=== PATIENT | female | born 1950 | race Caucasian/White ===

== ENCOUNTER 2017-06-20 06:29 | Observation (INO) ==
[2017-06-20] MEDS ORDERED: Oxymetazoline Nasal SPRAY BOTTLE NS STA (06:31)
--- NOTE | 2017-06-20 06:46 | Emergency Department Note ---
START Narrative - START START: I examined this patient and my medical decision-making was reviewed with the Resident Physician. I agree with the documented findings, disposition and treatment plan as described except to the extent set forth below. Findings consistent with epistaxis. Patient has anterior packing in place. There is bleeding around the anterior packing. The patient is not an anticoagulation. I did remove the anterior packing placed in anterior posterior back with Uzair- Synephrine. Plan to admit for ENT consult, will observe in the ER and if bleeding persists we will replace packing with Merocel packing. Could consider placing TX A on packing material.
--- NOTE | 2017-06-20 06:47 | Emergency Department Note ---
Disposition Clinical Impression: Epistaxis Disposition: Still a Patient Condition: Good Epistaxis HPI - General Chief complaint: ED Epistaxis Stated complaint: epistaxis Time Seen by Provider: 06/20/17 06:30 Source: EMS Limitations: no limitations Nursing Notes Reviewed: Yes Vital Signs Reviewed: Yes - History of Present Illness HPI Narrative: Patient presents for evaluation of epistaxis. Epistaxis started 5 days ago. Patient dealt with at home. Patient was seen at [facility] twice. Nasal packing placed yesterday. Patient was placed on antibiotics. Patient continues to have bleeding around the site. Patient does not take any anticoagulation. Patient has not had any previous similar episodes. Patient does not describe any other symptoms. Rhino Rocket will be removed. The posterior Rhino Rocket placed. The patient will be observed to ensure bleeding control. - Related Data Home Medications Medication Instructions Recorded Confirmed Aspirin 81 mg PO DAILY 02/24/15 06/19/17 [place]-3S/Dha/Epa/Fish Oil [Fish 1 tab PO QAM 02/24/15 06/19/17 Oil 1,200 mg Softgel] OxyCODONE/APAP 5/325 [Percocet 1 each PO Q6HR 02/24/15 06/19/17 5/325 MG] Pravastatin Sodium [Pravachol] 20 mg PO HS 05/13/16 06/19/17 Albuterol Sulfate [Ventolin Hfa] 2 puff IH Q4H PRN 05/23/16 06/19/17 Tiotropium [Spiriva] 18 mcg IH DAILY 05/23/16 06/19/17 Fluticasone/Salmeterol [Advair 1 each IH DAILY 06/17/17 06/19/17 250-50 Diskus] Lisinopril [Zestril] 10 mg PO DAILY 06/17/17 06/19/17 Metoprolol [Lopressor] 25 mg PO DAILY 06/17/17 06/19/17 Previous Rx's Medication Instructions Recorded Furosemide [Lasix] 20 mg PO DAILY #30 tablet 05/25/16 Tramadol HCl [Ultram] 50 mg PO QID PRN #10 tab 06/19/17 cephALEXin [Keflex] 500 mg PO QID #40 capsule 06/19/17 Allergies Allergy/AdvReac Type Severity Reaction Status Date / Time No Known Allergies Allergy Verified 06/20/17 06:30 Review of Systems: CONSTITUTIONAL: No weight loss, fever, chills, weakness or fatigue. HEENT: Eyes: No visual changes. Ears, Nose, Throat: Epistaxis No hearing loss, difficulty talking or unable to swallow. SKIN: No rash or itching. CARDIOVASCULAR: No chest pain, chest pressure or chest discomfort. No palpitations or edema. RESPIRATORY: No shortness of breath, cough or sputum. GASTROINTESTINAL: No anorexia, nausea, vomiting or diarrhea. No abdominal pain or blood. GENITOURINARY: No burning on urination or hematuria. NEUROLOGICAL: No headache, dizziness, syncope, paralysis, ataxia, numbness or tingling in the extremities. No change in bowel or bladder control. MUSCULOSKELETAL: No muscle pain, back pain, joint pain or stiffness. 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 Mild bleeding around Rhino Rocket. Patient has bleeding to the posterior oropharynx. Neck: Normal appearance; Trachea midline Chest: Symmetrical chest rise; No respiratory distress Extremities: No peripheral edema or extremity tenderness Skin: Normal temperature, turgor and texture; no rash, ulcers or subcutaneous nodules Psych: Appropriate mood and affect Neuro: Awake and alert - General Limitations: no limitations General appearance: alert, in no apparent distress Course Course Narrative: Rapid Rhino Rocket removed -Anterior. Uzair-Synephrine applied. -Posterior Rhino Rocket placed. Patient will be signed out to the oncoming day team. Dr. Stone and Dr. Patel. Patient will need to be monitored for other signs of bleeding. If any further signs of bleeding the patient's bleeding will need to be addressed. Vital Signs Temperature 98.0 F 06/20/17 06:32 Pulse Rate 110 06/20/17 06:32 Respiratory Rate 20 06/20/17 06:32 Blood Pressure 149/94 06/20/17 06:32 O2 Sat by Pulse Oximetry 93 01/13/18 06:32 Temperature 98.0 F 06/20/17 06:32 Pulse Rate 110 06/20/17 06:32 Respiratory Rate 20 06/20/17 06:32 Blood Pressure 149/94 06/20/17 06:32 O2 Sat by Pulse Oximetry 93 06/20/17 06:32 Oxygen Delivery Oxygen Delivery Room Air
[2017-06-20 08:42] LABS: Basophils # 0.1 K/mcL (0.0-0.2); Basophils % 0.5 %; Eosinophils # 0.1 K/mcL (0.0-0.6); Eosinophils % 0.5 %; Hematocrit 43.4 % (35.3-44.9); Hemoglobin 14.3 g/dL (11.5-15.4); Immature Granulocytes % 0.3 % (0-4); Lymphocytes # 2.3 K/mcL (0.6-4.6); Lymphocytes % 13.1 %; Mean Corpuscular HGB Conc 32.9 g/dL (31.6-35.5); Mean Corpuscular Hemoglobin 30.3 pg (28.0-33.3); Mean Corpuscular Volume 91.9 fL (83.0-100.0); Mean Platelet Volume 9.8 fL (9.4-12.4); Monocytes # 1.2 K/mcL (0.0-1.3); Monocytes % 6.8 %; Neutrophils # 13.9 K/mcL (1.6-8.9); Platelet Count 259 K/mcL (140-400); Red Blood Count 4.72 M/mcL (3.82-4.97); Segmented Neutrophils % 78.8 %
[2017-06-20 08:53] LABS: INR 1.1; Prothrombin Time 11.7 Seconds (9.4-12.1)
[2017-06-20 08:56] LABS: Activated Partial Thrombo Time 27.7 Seconds (26.0-36.0)
[2017-06-20 08:57] LABS: BUN/Creatinine Ratio 32 (6-26); Blood Urea Nitrogen 25 mg/dL (8-23); Calcium 8.8 mg/dL (8.6-10.3); Carbon Dioxide 27 mEq/L (23-29); Chloride 105 mEq/L (98-107); Glucose 125 mg/dL (70-105); Osmolality,Calculated 290 (280-300); Potassium 4.4 mEq/L (3.5-5.1); Sodium 137 mEq/L (136-145); eGFR For African Americans > 60 (> 60); eGFR For Non-African Americans > 60 (> 60)
--- NOTE | 2017-06-20 09:52 | Emergency Department Note ---
Disposition Clinical Impression: Epistaxis Disposition: Admitted As Inpatient Condition: Good Referrals: Huy Leung MD [Primary Care Provider] - Forms: ED Satisfaction Letter General Adult HPI - General Chief complaint: ED Epistaxis Stated complaint: epistaxis Time Seen by Provider: 06/20/17 06:30 Source: EMS Limitations: no limitations - History of Present Illness Pain Scale: 0 - Related Data Home Medications Medication Instructions Recorded Confirmed Aspirin 81 mg PO DAILY 02/24/15 06/19/17 [place]-3S/Dha/Epa/Fish Oil [Fish 1 tab PO QAM 02/24/15 06/19/17 Oil 1,200 mg Softgel] OxyCODONE/APAP 5/325 [Percocet 1 each PO Q6HR 02/24/15 06/19/17 5/325 MG] Pravastatin Sodium [Pravachol] 20 mg PO HS 05/13/16 06/19/17 Albuterol Sulfate [Ventolin Hfa] 2 puff IH Q4H PRN 05/23/16 06/19/17 Tiotropium [Spiriva] 18 mcg IH DAILY 05/23/16 06/19/17 Fluticasone/Salmeterol [Advair 1 each IH DAILY 06/17/17 06/19/17 250-50 Diskus] Lisinopril [Zestril] 10 mg PO DAILY 06/17/17 06/19/17 Metoprolol [Lopressor] 25 mg PO DAILY 06/17/17 06/19/17 Previous Rx's Medication Instructions Recorded Furosemide [Lasix] 20 mg PO DAILY #30 tablet 05/25/16 Tramadol HCl [Ultram] 50 mg PO QID PRN #10 tab 06/19/17 cephALEXin [Keflex] 500 mg PO QID #40 capsule 06/19/17 Allergies Allergy/AdvReac Type Severity Reaction Status Date / Time No Known Allergies Allergy Verified 06/20/17 06:30 Past Medical History - Past Medical History Medical history: Reports: COPD, hyperlipidemia, hypertension, other Surgical history: Reports: appendectomy, hysterectomy Psychiatric history: Reports: no psych history 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 She agreed to see the patient. No plan for any new intervention. Will admit to observation as she has had 3 packs in the last 5 days. Hgb is stable. Vital Signs Temperature 98.0 F 06/20/17 06:32 Pulse Rate 110 06/20/17 06:32 Respiratory Rate 20 06/20/17 06:32 Blood Pressure 149/94 06/20/17 06:32 O2 Sat by Pulse Oximetry 93 06/20/17 06:32 Temperature 98.0 F 06/20/17 06:32 Pulse Rate 98 06/20/17 08:37 Respiratory Rate 20 06/20/17 06:32 Blood Pressure 110/77 06/20/17 08:37 O2 Sat by Pulse Oximetry 91 06/20/17 08:37 Oxygen Delivery Oxygen Delivery Room Air Medical Decision Making - Medical Records Medical records reviewed: Yes I reviewed the patient's medical records. - Lab Data Lab results reviewed: Yes I reviewed the patient's lab results. Result diagrams: 06/20/17 08:31 06/20/17 08:31 Lab Results 06/20/17 06/20/17 06/20/17 Range/Units 08:31 08:31 08:31 WBC 17.6 H (4.3-11.1) K/mcL RBC 4.72 (3.82-4.97) M/mcL Hgb 14.3 (11.5-15.4) g/dL Hct 43.4 (35.3-44.9) % MCV 91.9 (83.0-100.0) fL MCH 30.3 (28.0-33.3) pg MCHC 32.9 (31.6-35.5) g/dL RDW 15.0 H (11.5-14.5) % Plt Count 259 (140-400) K/mcL MPV 9.8 (9.4-12.4) fL Immature Gran % 0.3 (0-4) % Seg Neutrophils % 78.8 % Lymphocytes % 13.1 % Monocytes % 6.8 % Eosinophils % 0.5 % Basophils % 0.5 % Neutrophils # 13.9 H (1.6-8.9) K/mcL Lymphocytes # 2.3 (0.6-4.6) K/mcL Monocytes # 1.2 (0.0-1.3) K/mcL Eosinophils # 0.1 (0.0-0.6) K/mcL Basophils # 0.1 (0.0-0.2) K/mcL PT 11.7 (9.4-12.1) Seconds INR 1.1 APTT 27.7 (26.0-36.0) Seconds Sodium 137 (136-145) mEq/L Potassium 4.4 (3.5-5.1) mEq/L Chloride 105 (98-107) mEq/L Carbon Dioxide 27 (23-29) mEq/L BUN 25 H (8-23) mg/dL Creatinine 0.77 (0.60-1.20) mg/dL Est GFR ( Amer) > 60 (> 60) Est GFR (Non-Af Amer) > 60 (> 60) BUN/Creatinine Ratio 32 H (6-26) Glucose 125 H (70-105) mg/dL Calculated Osmolality 290 (280-300) Calcium 8.8 (8.6-10.3) mg/dL Blood Type 06/20/17 Range/Units 08:31 WBC (4.3-11.1) K/mcL RBC (3.82-4.97) M/mcL Hgb (11.5-15.4) g/dL Hct (35.3-44.9) % MCV (83.0-100.0) fL MCH (28.0-33.3) pg MCHC (31.6-35.5) g/dL RDW (11.5-14.5) % Plt Count (140-400) K/mcL MPV (9.4-12.4) fL Immature Gran % (0-4) % Seg Neutrophils % % Lymphocytes % % Monocytes % % Eosinophils % % Basophils % % Neutrophils # (1.6-8.9) K/mcL Lymphocytes # (0.6-4.6) K/mcL Monocytes # (0.0-1.3) K/mcL Eosinophils # (0.0-0.6) K/mcL Basophils # (0.0-0.2) K/mcL PT (9.4-12.1) Seconds INR APTT (26.0-36.0) Seconds Sodium (136-145) mEq/L Potassium (3.5-5.1) mEq/L Chloride (98-107) mEq/L Carbon Dioxide (23-29) mEq/L BUN (8-23) mg/dL Creatinine (0.60-1.20) mg/dL Est GFR ( Amer) (> 60) Est GFR (Non-Af Amer) (> 60) BUN/Creatinine Ratio (6-26) Glucose (70-105) mg/dL Calculated Osmolality (280-300) Calcium (8.6-10.3) mg/dL Blood Type O NEGATIVE Attestation Statement - Attestation Attestation: I examined this patient and my medical decision-making was reviewed with the Resident Physician. I agree with the documented findings, disposition and treatment plan as described except to the extent set forth below. Signed out by technical systems architect pending re-eval after nasal packing. No further bleeding .Discussed with ENT. Will admit for OBS as she has now had 3 ED visits.
--- NOTE | 2017-06-20 10:02 | ENT - Consult Note ---
Date of Encounter: 06/20/17 Time of Encounter: 10:00 Assessment and Plan (1) Epistaxis, recurrent Current Visit: Yes Status: Acute From the ENT standpoint the patient is stable for D/C home though I understand from the ED she is concerned about driving conditions and has elected to stay for observation. She already has an appt with our office for Thursday but we will call the patient to move that to Thursday or Thursday as I would like the current pack to remain in place for at least 3 days. Please prescribe oral antibiotics for prophylaxis. I will be happy to check her again should she rebleed while she is in the hospital. History of Present Illness Consult date: 06/20/17 Reason for ENT Consult: epistaxis History of present illness: 66 yo female with history of left sided epistaxis this week. Per the patient she was packed twice at an outside facility and then rebleed. She was advised to come to the [facility] ED this morning and was repacked with a longer device. She has now been in the ED for > 3 hours without bleeding. Her Hgb/ HcT is wnl. She reports stopping daily Aspirin 81 mg this week. Past Med Surg Social Fam HX - Past Medical History Medical history: COPD, hyperlipidemia, hypertension, other Psychiatric history: no psych history - Past Surgical History Surgical History: appendectomy, hysterectomy - Social History Smoking Status: Former smoker Smokeless Tobacco Status: No Alcohol use: none Drug use: none - Family History Mother Hx Family Cardiac Disorders: No Hx Family Respiratory Disorders: No Hx Family Cancer: Yes ("female cancer") Hx Family GI Disorders: No Hx Family Endocrine Disorder: No Hx Family Neuromuscular Disorders: No Hx Family Neurologic Disorders: No Hx Family HEENT Disorders: No Hx Family Autoimmune Disorders: No Medications and Allergies Aspirin 81 mg PO DAILY 02/24/15 [History] [place]-3S/Dha/Epa/Fish Oil [Fish Oil 1,200 mg Softgel] 1 tab PO QAM 02/24/15 [ History] OxyCODONE/APAP 5/325 [Percocet 5/325 MG] 1 each PO Q6HR 02/24/15 [History] Pravastatin Sodium [Pravachol] 20 mg PO HS 05/13/16 [History] Albuterol Sulfate [Ventolin Hfa] 2 puff IH Q4H PRN 05/23/16 [History] Tiotropium [Spiriva] 18 mcg IH DAILY 05/23/16 [History] Furosemide [Lasix] 20 mg PO DAILY #30 tablet 05/25/16 [Rx] Fluticasone/Salmeterol [Advair 250-50 Diskus] 1 each IH DAILY 06/17/17 [History] Lisinopril [Zestril] 10 mg PO DAILY 06/17/17 [History] Metoprolol [Lopressor] 25 mg PO DAILY 06/17/17 [History] Tramadol HCl [Ultram] 50 mg PO QID PRN #10 tab 06/19/17 [Rx] cephALEXin [Keflex] 500 mg PO QID #40 capsule 06/19/17 [Rx] 3 Allergy/AdvReac Type Severity Reaction Status Date / Time No Known Allergies Allergy Verified 06/20/17 06:30 ENT Exam Initial Vital Signs Temp Pulse Resp BP Pulse Ox 98.0 F 110 20 149/94 93 06/20/17 06:32 06/20/17 06:32 06/20/17 06:32 06/20/17 06:32 06/20/17 06:32 - ENT Other (Pack in Left nares with no active bleed, oropharynx is dry without fresh or old blood.) Exam Initial Vital Signs Temp Pulse Resp BP Pulse Ox 98.0 F 110 20 149/94 93 06/20/17 06:32 06/20/17 06:32 06/20/17 06:32 06/20/17 06:32 06/20/17 06:32 Results - Labs 06/20/17 08:31 06/20/17 08:31 Abnormal lab results WBC 17.6 K/mcL (4.3-11.1) H 06/20/17 08:31 RDW 15.0 % (11.5-14.5) H 06/20/17 08:31 Neutrophils # 13.9 K/mcL (1.6-8.9) H 06/20/17 08:31 BUN 25 mg/dL (8-23) H 06/20/17 08:31 BUN/Creatinine Ratio 32 (6-26) H 06/20/17 08:31 Glucose 125 mg/dL (70-105) H 06/20/17 08:31 Diabetes panel 06/20/17 Range/Units 08:31 Sodium 137 (136-145) mEq/L Potassium 4.4 (3.5-5.1) mEq/L Chloride 105 (98-107) mEq/L Carbon Dioxide 27 (23-29) mEq/L BUN 25 H (8-23) mg/dL Creatinine 0.77 (0.60-1.20) mg/dL Glucose 125 H (70-105) mg/dL Calcium 8.8 (8.6-10.3) mg/dL Calcium panel 06/20/17 Range/Units 08:31 Calcium 8.8 (8.6-10.3) mg/dL Pituitary panel 06/20/17 Range/Units 08:31 Sodium 137 (136-145) mEq/L Potassium 4.4 (3.5-5.1) mEq/L Chloride 105 (98-107) mEq/L Carbon Dioxide 27 (23-29) mEq/L BUN 25 H (8-23) mg/dL Creatinine 0.77 (0.60-1.20) mg/dL Glucose 125 H (70-105) mg/dL Calcium 8.8 (8.6-10.3) mg/dL Adrenal panel 06/20/17 Range/Units 08:31 Sodium 137 (136-145) mEq/L Potassium 4.4 (3.5-5.1) mEq/L Chloride 105 (98-107) mEq/L Carbon Dioxide 27 (23-29) mEq/L BUN 25 H (8-23) mg/dL Creatinine 0.77 (0.60-1.20) mg/dL Glucose 125 H (70-105) mg/dL Calcium 8.8 (8.6-10.3) mg/dL All other labs normal. Consult Discharge Plan - Plan Referrals: Huy Leung MD [Primary Care Provider] -
[2017-06-20] MEDS ORDERED: Naloxone 0.4 MG/ML INJ IVP PRN ×2 (10:50→10:53)
[2017-06-20] MEDS ORDERED: Acetaminophen 325 MG TABLET PO PRN (10:53)
--- NOTE | 2017-06-20 11:03 | Internal Med History&Physical ---
Date of Encounter: 06/20/17 Time of Encounter: :18 Assessment and Plan (1) Epistaxis, recurrent Current visit: Yes Status: Acute ENT evaluated the patient in the ER, plan of care explained and their note Posterior Rhino Rocket packing to be left intact for 3 days Follow-up with ENT on Thursday or Thursday Pain control Hold aspirin (2) Hypertension Current visit: Yes Status: Chronic Monitor blood pressure Continue home medication regime Qualifiers: Hypertension type: essential hypertension Qualified Code(s): I10 - Essential (primary) hypertension (3) Hyperlipidemia Current visit: Yes Status: Chronic Continue home medication Qualifiers: Hyperlipidemia type: unspecified Qualified Code(s): E78.5 - Hyperlipidemia , unspecified (4) Tobacco use Current visit: Yes Status: Acute Cessation education NicoDerm patch (5) DVT prophylaxis Current visit: Yes Status: Acute Ambulation and SCDs No prophylaxis secondary to bleeding risk (6) COPD not affecting current episode of care Current visit: Yes Status: Chronic Resume home meds including Spiriva Advair and pro-air Internal Medicine - H&P: HPI Chief complaint: At the [facility] Admitted From: Emergency Dept Plans for Post Hospital Care: Home History of present illness: Ms. Bennett is a 66 year old female who has had ongoing nosebleeds for the past 5 days. She was packed 2 at the [facility] facility. Last packing was placed last night and she was placed on a oral antibiotic and her aspirin was held. She started to bleed around the packing again so presented to the emergency room here for evaluation. The old packing was removed and a posterior Rhino Rocket pack was applied to the left narei, ENT saw her and will follow-up as an outpatient on Thursday or Thursday with arrangements being facilitated by their service. She is to leave the packing in place until then. They are perspective she was able to be discharged home. She has a history significant for chronic back pain, hypertension, COPD, osteoporosis and tobacco abuse. She is currently lying in bed and states her pain is not very significant more of a soreness, she denies chest pain, shortness of breath, fever, chills, abdominal pain, nausea, vomiting, headache, dizziness, recent illness, or changes in bowel or bladder. He does have a chronic cough secondary to her tobacco use. She is aware of plan of care including follow-up with ENT next week. All of her questions were answered. Past Med Surg Social Fam HX - Past Medical History Medical history: COPD, hyperlipidemia, hypertension, osteoporosis, other Psychiatric history: no psych history - Past Surgical History Surgical History: appendectomy, hysterectomy - Social History Smoking Status: Current every day smoker Smokeless Tobacco Status: No Alcohol use: none Drug use: none Occupational status: retired Current living situation: Home - Independent Activity Level: Independent ambulation - Family History Mother Hx Family Cardiac Disorders: No Hx Family Respiratory Disorders: No Hx Family Cancer: Yes ("female cancer") Hx Family GI Disorders: No Hx Family Endocrine Disorder: No Hx Family Neuromuscular Disorders: No Hx Family Neurologic Disorders: No Hx Family HEENT Disorders: No Hx Family Autoimmune Disorders: No - Additional Family History Additional family history: Reviewed and noncontributory to this event Internal Medicine - H&P: Meds Aspirin 81 mg PO DAILY 02/24/15 [History] [place]-3S/Dha/Epa/Fish Oil [Fish Oil 1,200 mg Softgel] 1 tab PO QAM 02/24/15 [ History] OxyCODONE/APAP 5/325 [Percocet 5/325 MG] 1 each PO Q6HR 02/24/15 [History] Pravastatin Sodium [Pravachol] 20 mg PO HS 05/13/16 [History] Albuterol Sulfate [Ventolin Hfa] 2 puff IH Q4H PRN 05/23/16 [History] Tiotropium [Spiriva] 18 mcg IH DAILY 05/23/16 [History] Furosemide [Lasix] 20 mg PO DAILY #30 tablet 05/25/16 [Rx] Fluticasone/Salmeterol [Advair 250-50 Diskus] 1 each IH DAILY 06/17/17 [History] Lisinopril [Zestril] 10 mg PO DAILY 06/17/17 [History] Metoprolol [Lopressor] 25 mg PO DAILY 06/17/17 [History] Tramadol HCl [Ultram] 50 mg PO QID PRN #10 tab 06/19/17 [Rx] cephALEXin [Keflex] 500 mg PO QID #40 capsule 06/19/17 [Rx] 3 Allergy/AdvReac Type Severity Reaction Status Date / Time No Known Allergies Allergy Verified 06/20/17 06:30 All Systems PM: A 10-system review of systems was performed and is negative for pertinent findings except as documented above in the HPI. - Constitutional Constitutional: no chills, no fever(s), no night sweats - EENT Eyes: no change in vision, no discharge, no pain, no photophobia Ears: no ear discharge, no ear pain, no tinnitus Nose, mouth and throat: epistaxis, no dysphagia, no nasal discharge, no neck pain, no sore throat - Cardiovascular Cardiovascular ROS IM: no chest pain, no diaphoresis, no dyspnea, no lightheadedness, no palpitations, no syncope - Respiratory Respiratory: cough, no dyspnea, no wheezing, no excessive phlegm production - Gastrointestinal Gastrointestinal: no abdominal pain, no diarrhea, no hematemesis, no hematochezia, no melena, no nausea, no vomiting - Genitourinary Genitourinary: no change in urinary stream, no dysuria, no flank pain, no hematuria - Musculoskeletal Musculoskeletal ROS IM: no numbness, no tingling - Integumentary Integumentary IM: no rash, no unusual bruising - Neurological Neurological ROS: no confusion, no convulsions, no focal weakness, no numbness, no tingling, no tremor(s) - Hematologic/Lymphatic Hematologic/Lymphatic: no easy bruising - Constitutional Vitals: Temp Pulse Resp BP Pulse Ox 98.0 F 101 15 127/80 93 06/20/17 06:32 06/20/17 10:02 06/20/17 10:42 06/20/17 10:42 06/20/17 10:02 General appearance: Present: A&O X 3, pleasant, no acute distress, obese, answers questions appropriately - Head Head exam: Present: atraumatic, normocephalic - Eye Eye exam: Present: PERRL, conjuntiva pink, sclera anicteric Pupils: Present: PERRL - ENT Additional comments: Left Nare with posterior Rhino rocket packing in place, no oozing or bleeding noted but dried blood in the nare - Neck Neck exam general surgery: Present: supple, trachea midline. Absent: lymphadenopathy - Respiratory Respiratory exam: Present: decreased breath sounds. Absent: accessory muscle use, rales, rhonchi, wheezes Additional comments: Loose nonproductive cough on forced expiration secondary to smoking, no wheezes or rhonchi appreciated, no accessory muscle use - Cardiovascular Cardiovascular exam: Present: RRR, +S1, +S2. Absent: diastolic murmur, gallop, rubs, systolic murmur - GI/Abdominal GI/Abdominal exam: Present: normal bowel sounds, soft, no peritoneal signs. Absent: distended, tenderness - Extremities Exam Extremities exam: Present: warm, radial pulses palpable and symmetrical. Absent : calf tenderness, cyanotic, pedal edema, tenderness - Neurological Exam Neurological exam: Present: oriented X3, no focal deficits. Absent: pronater drift, facial droop, speech deficit - Skin Skin exam: Present: dry, intact, warm Internal Med - H&P Results - Labs CBC & Chem 7: 06/20/17 08:31 06/20/17 08:31
[2017-06-20] MEDS: *HR* OxyCODONE/APAP 5/325 TABLET PO SCH ×2 (12:54→17:55)
[2017-06-20] MEDS: Nicotine 21 MG PATCH.TD24 TD SCH (12:54)
[2017-06-20] MEDS: cephALEXin 500 MG CAPSULE PO SCH ×3 (12:54→21:20)
[2017-06-20] MEDS: Tiotropium 18 MCG inhalation IH SCH (13:16)
[2017-06-21] MEDS: *HR* OxyCODONE/APAP 5/325 TABLET PO SCH ×2 (00:03→06:04)
[2017-06-21 06:45] LABS: Basophils # 0.1 K/mcL (0.0-0.2); Basophils % 0.6 %; Eosinophils # 0.3 K/mcL (0.0-0.6); Eosinophils % 2.4 %; Hemoglobin 13.2 g/dL (11.5-15.4); Immature Granulocytes % 0.5 % (0-4); Lymphocytes # 3.1 K/mcL (0.6-4.6); Lymphocytes % 24.8 %; Mean Corpuscular HGB Conc 32.2 g/dL (31.6-35.5); Mean Corpuscular Hemoglobin 29.9 pg (28.0-33.3); Mean Corpuscular Volume 92.8 fL (83.0-100.0); Mean Platelet Volume 10.1 fL (9.4-12.4); Monocytes % 7.8 %; Neutrophils # 7.9 K/mcL (1.6-8.9); Platelet Count 226 K/mcL (140-400); Red Blood Count 4.42 M/mcL (3.82-4.97); Red Cell Distribution Width 14.8 % (11.5-14.5); Segmented Neutrophils % 63.9 %
[2017-06-21 06:53] LABS: BUN/Creatinine Ratio 21 (6-26); Blood Urea Nitrogen 17 mg/dL (8-23); Calcium 8.8 mg/dL (8.6-10.3); Carbon Dioxide 29 mEq/L (23-29); Chloride 104 mEq/L (98-107); Glucose 133 mg/dL (70-105); Osmolality,Calculated 289 (280-300); Potassium 3.9 mEq/L (3.5-5.1); Sodium 138 mEq/L (136-145); eGFR For African Americans > 60 (> 60); eGFR For Non-African Americans > 60 (> 60)
[2017-06-21 07:10] VITALS: BP 113/73
[2017-06-21] MEDS: Tiotropium 18 MCG inhalation IH SCH (08:40)
[2017-06-21] MEDS: cephALEXin 500 MG CAPSULE PO SCH (09:41)
[2017-06-21] MEDS: Nicotine 21 MG PATCH.TD24 TD SCH (09:41)
[2017-06-21] MEDS ORDERED: Budesonide/Formoterol 80/4.5 MDI IH SCH ×2 (10:00→10:35)
--- NOTE | 2017-06-21 12:42 | Discharge Summary ---
Date of Encounter: 06/21/17 Time of Encounter: 12:47 - Discharge Diagnosis (1) Epistaxis, recurrent Priority: Primary Status: Resolved Comments: patient reports recurrent epistaxis for the last week; was packed twice at an outside facility and then rebleed. Posterior Rhino Rocket placed on 06/20/17 at [facility] ED with no bleeding recurrence. Evaluated by ENT who recommends keeping packing in place for 3 days with ENT follow-up on Thursday06/23/17. Hgb stable. ASA stopped. Patient advised to return to ER if bleeding recurs. (2) COPD (chronic obstructive pulmonary disease) Priority: Secondary Status: Chronic Comments: per hx. with scant wheezing and productive cough (patient reports increase in sputum production). Discharge home on [place], hold on steroids. Continue home inhalers. Recommend follow-up with PCP within one week. Qualifiers: COPD type: COPD with acute exacerbation Qualified Code(s): J44.1 - Chronic obstructive pulmonary disease with (acute) exacerbation (3) Hypertension Priority: Secondary Status: Chronic Comments: per hx. BP controlled. Cont home BP medications Qualifiers: Hypertension type: essential hypertension Qualified Code(s): I10 - Essential (primary) hypertension (4) Leukocytosis Priority: Primary Status: Acute Comments: WBC peaked at 17K and trended down. Possibly reactive however could be secondary to COPD exacerbation. No lactic acid or blood cultures drawn. Afebrile, no tachycardia or hypotension. Treat for COPD exacerbation as noted above. Qualifiers: Leukocytosis type: unspecified Qualified Code(s): D72.829 - Elevated white blood cell count, unspecified - Discharge Medications Prescriptions: Azithromycin [Azithromycin 6-Tab Pack] 250 mg PO PER PKG DI #6 tab Home Medications: [place]-3S/Dha/Epa/Fish Oil [Fish Oil 1,200 mg Softgel] 1 tab PO QAM 02/24/15 [ History] OxyCODONE/APAP 5/325 [Percocet 5/325 MG] 1 each PO Q6HR 02/24/15 [History] Pravastatin Sodium [Pravachol] 20 mg PO HS 05/13/16 [History] Albuterol Sulfate [Ventolin Hfa] 2 puff IH Q4H PRN 05/23/16 [History] Tiotropium [Spiriva] 18 mcg IH DAILY 05/23/16 [History] Furosemide [Lasix] 20 mg PO DAILY #30 tablet 05/25/16 [Rx] Fluticasone/Salmeterol [Advair 250-50 Diskus] 1 each IH DAILY 06/17/17 [History] Lisinopril [Zestril] 10 mg PO DAILY 06/17/17 [History] Metoprolol [Lopressor] 25 mg PO DAILY 06/17/17 [History] Tramadol HCl [Ultram] 50 mg PO QID PRN #10 tab 06/19/17 [Rx] Azithromycin [Azithromycin 6-Tab Pack] 250 mg PO PER PKG DI #6 tab 06/21/17 [Rx] Allergies/Adverse Reactions: 3 Allergy/AdvReac Type Severity Reaction Status Date / Time No Known Allergies Allergy Verified 06/20/17 06:30 Date of admission: 06/20/17 10:05 Primary care physician: Huy Leung MD Discharging clinician: Awa eYe Anticipated date of discharge: 06/21/17 - Patient Status Disposition: Home, Self-Care Condition: Good Functional capacity at discharge: independent ambulation Overall status at discharge: patient is progressing back to baseline - Discharge Instructions Instructions: Epistaxis (DC), Chronic Obstructive Pulmonary Disease (DC), Chronic Hypertension (DC), Azithromycin (By mouth) Follow Up With: Huy Leung MD [Primary Care Provider] - Yuliya Fournier MD [Non-Partnered Physician] - - Diet and Activity Activity: increase activity as tolerated Diet: advance to your usual diet Interval History: Seen and examined at bedside, patient is new to me. Information obtained from chart Hospital course: Ms. Bennett is a 66 year old female - Time Spent with Patient Total time spent providing and/or coordinating discharge services: - Constitutional Vitals: Temp Pulse Resp BP Pulse Ox 98.1 F 84 16 113/73 90 06/21/17 07:10 06/21/17 07:10 06/21/17 08:52 06/21/17 07:10 06/21/17 08:52 General appearance: Present: A&O X 3, pleasant, no acute distress, obese, answers questions appropriately - Head Head exam: Present: atraumatic, normocephalic - Eye Eye exam: Present: PERRL, conjuntiva pink, sclera anicteric Pupils: Present: PERRL - Neck Neck exam general surgery: Present: supple, trachea midline. Absent: lymphadenopathy - Respiratory Respiratory exam: Present: CTAB, wheezes (Scant wheezing). Absent: accessory muscle use, rales, rhonchi - Cardiovascular Cardiovascular exam: Present: RRR, +S1, +S2. Absent: diastolic murmur, gallop, rubs, systolic murmur - GI/Abdominal GI/Abdominal exam: Present: normal bowel sounds, soft, no peritoneal signs. Absent: distended, tenderness - Extremities Exam Extremities exam: Present: warm, radial pulses palpable and symmetrical. Absent : calf tenderness, cyanotic, pedal edema - Neurological Exam Neurological exam: Present: CN II-XII intact, oriented X3, no focal deficits. Absent: pronater drift, facial droop, speech deficit - Skin Skin exam: Present: dry, intact
[2017-06-21] MEDS ORDERED: Budesonide/Formoterol 160/4.5 MDI IH SCH (22:00)
== END 2017-06-21 14:25 | disposition home or self-care (01) ==
LOC: EMEROO 06:29 → 3BNU 06:29
PROVIDERS: ADMIT Registered Nurse; ATTEND Registered Nurse